=== PATIENT | male | born 1985 | race Caucasian/White ===

== ENCOUNTER → 2024-09-06 09:33 | Outpatient (BNVA) | payer OTHER, SELFPAY | PROVIDERS: Visit Provider Internal Medicine | DX: Z77.011 Contact with and (suspected) exposure to lead (principal) | CPT/HCPCS: 99203 ==

== ENCOUNTER → 2024-09-20 15:22 | Outpatient (BNVA) | payer OTHER, SELFPAY | DX: Z77.011 Contact with and (suspected) exposure to lead (principal) | CPT/HCPCS: 80053; 81001; 83655; 84202; 85025; 99211 ==

== ENCOUNTER → 2024-10-19 15:23 | Outpatient (BNVA) | payer OTHER, SELFPAY | DX: Z77.011 Contact with and (suspected) exposure to lead (principal) | CPT/HCPCS: 83655; 84202; 99211 ==

== ENCOUNTER → 2024-10-29 15:26 | Outpatient (BNVA) | payer OTHER, SELFPAY | DX: Z77.011 Contact with and (suspected) exposure to lead (principal); Z02.79 Encounter for issue of other medical certificate | CPT/HCPCS: 83655; 84202; 99211 ==

== ENCOUNTER → 2024-12-20 15:28 | Outpatient (BNVA) | payer OTHER, SELFPAY | DX: Z77.011 Contact with and (suspected) exposure to lead (principal) | CPT/HCPCS: 83655; 84202; 99211 ==

== ENCOUNTER → 2025-02-03 14:05 | Outpatient (BNVA) | payer OTHER, SELFPAY | DX: Z77.011 Contact with and (suspected) exposure to lead (principal) | CPT/HCPCS: 83655; 84202; 99211 ==

== ENCOUNTER → 2025-03-31 13:03 | Outpatient (BNVA) | payer OTHER, SELFPAY | DX: Z77.011 Contact with and (suspected) exposure to lead (principal); Z02.79 Encounter for issue of other medical certificate | CPT/HCPCS: 83655; 84202; 99211 ==